=== PATIENT | male | born 1960 ===

== ENCOUNTER 2019-08-03 11:09 | Inpatient (IN) ==
[2019-08-03] MEDS ORDERED: ACETAMINOPHEN 325 MG TAB PO PRN (12:43)
[2019-08-03 13:42] LABS: Basophils # (auto) 0.03 K/uL (0-0.2); Basophils % (auto) 0.5 %; Eosinophils # (auto) 0.09 K/uL (0-0.5); Eosinophils % (auto) 1.4 %; Hemoglobin 12.6 g/dL (14.0-18.0); Immature Granulocytes # (auto) 0.01 K/uL (0.00-0.02); Immature Granulocytes % (auto) 0.2 %; Lymphocytes # (auto) 0.87 K/uL (1.2-3.4); Lymphocytes % (auto) 13.1 %; Mean Corpuscular Hemoglobin 29.9 pg (25-34); Mean Corpuscular Volume 85.5 fL (80-100); Mean Platelet Volume 10.9 fL (7.4-10.4); Monocytes % (auto) 9.1 %; Neutrophils # (auto) 5.02 K/uL (1.4-6.5); Neutrophils % (auto) 75.7 %; Platelet Count 144 K/uL (130-400); RDW Coefficient of Variation 12.8 % (11.5-14.5); Red Blood Count 4.21 M/uL (4.7-6.1); White Blood Count 6.62 K/uL (4.8-10.8)
[2019-08-03 14:04] LABS: BUN Creatinine Ratio 17.3 (10-20); Calcium 8.2 mg/dl (8.5-10.1); Creatinine Clr Calc Pharmacy 90.4 ml/min; Est GFR (African American) 97.6; Est GFR (Non-African American) 84.2; Magnesium 2.1 mg/dl (1.8-2.4); Potassium 3.3 mmol/L (3.5-5.1)
[2019-08-03 14:14] LABS: Phosphorus 1.8 mg/dl (2.5-4.9); Thyroid Stimulating Hormone 4.06 uIu/ml (0.300-4.500)
[2019-08-03 14:21] LABS: Lyme Ab IgG w/WB Rflx Negative (Negative); Lyme Ab IgM w/WB Rflx Negative (Negative)
[2019-08-03] MEDS: ENOXAPARIN INJ 40 MG/0.4 ML SYR SQ SCH (16:03)
--- NOTE | 2019-08-03 16:12 | Cardiology Consultation ---
Date of Consultation August 03, 2019 Assessment & Plan (1) PAF (paroxysmal atrial fibrillation): The patient likely had a paroxysm of atrial fibrillation lasting 8-10 hours. Fortunately, he has converted back to sinus rhythm. Interestingly, the patient received an injection of what was most likely a steroid, the morning before his atrial fibrillation developed. In any event, the patient's CHADS score is 0, and therefore, he does not require long-term anticoagulation at this time. (2) Elevated troponin: The minor elevation in troponin likely related to the rapid ventricular response to his atrial fibrillation. Would simply trend his cardiac markers at this time. History of Present Illness Attending Physician: Aldo Ortega History of Present Illness Mr. Fabian is a 58-year-old male transferred from [facility] to our institution because of atrial fibrillation and a rapid ventricular response. This consultation was order to assist in his cardiac management. The patient was in his usual state of health until Friday when he awoke from sleep with fever, chills, in a diffuse rash. The patient presented to his primary care provider on Friday and received doxycycline and apparently had some type of an injection (? hydrocortisone). On Friday evening, just prior to going to bed, the patient noticed his heart to race causing him palpitations and anxiety. The patient was eventually able to fall sleep, however, when he awoke Friday, his palpitations persisted. He presented to the [facility] for further care. Initial EKG revealed atrial fibrillation with a rapid ventricular response. The patient was given a dose of intravenous adenosine, but then started on an intravenous Cardizem drip. He was then transferred to our institution for further care. The patient was interviewed and examined in the Echo Department this afternoon. At the time of my evaluation, the patient was in sinus rhythm. The patient has never known of an episode of atrial fibrillation previously. He has never experienced a cardiac event. He denies exertional chest pain, dyspnea, syncope, presyncope, PND, orthopnea, lower extremity edema, and claudication. The patient does not recall a tick bite, however, spends a great deal time in the [employer] hunting. Currently, patient is resting comfortably in bed complaining only of myalgias. Past medical and surgical history 1. GERD 2. Goss's esophagus 3. Hiatal hernia repair an esophageal resection-2017 4. History of pancreatitis 5. 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 Allergies Allergy/AdvReac Type Severity Reaction Status Date / Time Penicillins Allergy Rash Verified 08/03/19 12:39 sulfamethoxazole Allergy Rash Verified 08/03/19 12:39 [From Bactrim] trimethoprim [From Bactrim] Allergy Rash Verified 08/03/19 12:39 aspirin AdvReac Unknown Verified 08/03/19 12:39 Home Medications Home Medications Medication Instructions Recorded Confirmed Type loratadine [Claritin] 10 mg PO DAILY 08/03/19 08/03/19 History multivitamin 1 tab PO DAILY 08/03/19 08/03/19 History Patient History Medical History GERD (gastroesophageal reflux disease) Pancreatitis Surgical History History of repair of hiatal hernia Social History Preferred Language: Romansh Communication Ability: Effective Land Law Examiner Required: No Beliefs That Will Affect Care: None Current Living Situation: Spouse Other Information That Helps Us Care for You: No Feels Safe at Home: Yes Safety Concerns: Feels Safe At This Time Smoking Status: Former smoker Tobacco Type: smokeless tobacco ; Do You Dip or Chew Tobacco: Yes ; Hx Alcohol Use: No Hx Substance Use: No Results & Data Vital Signs (Past 12 Hours) Vital Signs Temp Pulse Pulse Resp BP Pulse Ox 08/03/19 15:32 36.9 C 92 H 18 101/72 95 08/03/19 12:41 83 08/03/19 12:22 36.8 C 92 H 16 103/68 98 Laboratory Results CBC notes a hemoglobin of 12.6, hematocrit 36.0, white count 6.6, and platelet count of [id number]. Electrolytes episode of 135, potassium 3.3, chloride 103, bicarb 25, BUN 70, creatinine 0.99, and glucose of 121. Magnesium normal at 2.1 with a low phosphorus at 1.8. TSH level is normal at 4.06. Troponin I level is elevated at 0.097. Diagnostic Findings EKG performed this morning at [facility] revealed atrial fibrillation with a rapid ventricular response. 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 PG Care Time/CCT Total # of Minutes Spent Total Time Spent with Patient: Total time spent is greater than 50% in coordination of care (as documented) at patient's floor/unit and/or counseling patient:
[2019-08-03] MEDS: DOXYCYCLINE HYCLATE 100 MG CAP PO SCH (20:08)
[2019-08-03] MEDS ORDERED: SODIUM PHOSPHATE 3 MMOL/1 ML INFUSION IV STA (21:54)
[2019-08-03] MEDS ORDERED: POTASSIUM CHLORIDE 20 MEQ TABCR PO STA (21:54)
[2019-08-03] MEDS ORDERED: SODIUM PHOSPHATE 21 MMOL in SODIUM CHLORIDE 0.9% 500 ML IV ONE (22:30)
--- NOTE | 2019-08-03 23:51 | History & Physical Report ---
Date of Service August 03, 2019 Assessment & Plan (1) Atrial fibrillation: With brief episode of atrial fibrillation with RVR. Resolved after Cardizem. Presently asymptomatic, hemodynamically stable, in normal sinus rhythm. Per UEBFV-9-Uozo score patient is low risk for stroke and therefore does not require systemic anticoagulation. As he is back in normal sinus rhythm we will not initiate any antiarrhythmics. -Trend cardiac markers. Initial troponin = 0.097, repeat 0.068. -Cardiology assistance appreciated Present on Admission?: Yes (2) Dyslipidemia: Patient with documented history of this. Presently not on any medication -Recommend outpatient follow-up Present on Admission?: Yes (3) Hypertension: Patient with documented history of this. Not presently on any medications. Low blood pressure -Continue to monitor Present on Admission?: Yes (4) Rash: Suspect that his rash is secondary to Bactrim use. Less likely from the doxycycline. He reports that it is improved -Benadryl as needed FENHep-Lock. Monitor electrolytes and replete as needed. Heart healthy diet as tolerated. ProphylaxisLovenox Codefull DispoPCU Present on Admission?: Yes History of Present Illness Chief Complaint: Palpitations Primary Care Provider: NO PCP Mr. Fabian is a pleasant 58-year-old male with history of hypertension, hyperlipidemia, GERD presenting from an outside hospital with new onset atrial fibrillation. Patient reports that his symptoms began last night around 2200 and consisted of palpitations, racing heart as well as some chest pressure and shortness of breath. His symptoms persisted through the night w hich prompted him to seek medical care. He was seen at [facility] where he was found to be in narrow complex tachycardia with a rate of 221, blood pressure as low as 89/61. He was administered adenosine 6 mg and multiple doses of Cardizem (per record review 20 mg IV x2 doses and 10 mg IV x2 doses). EKG suggestive of atrial fibrillation with RVR. He was started on a heparin drip an d subsequently transferred to [facility]. Patient presently with no complaints. He denies palpitations, chest pain, shortness of breath, dizziness. He reports that he feels much better than before. He has no known history of CAD, heart failure, arrhythmia. He is active and independent, enjoys hiking and hunting. No known tick exposures. He was tested for Lyme at the outside facility and was started on empiric doxycycline. Patient also with a recent tooth abscess for which she was treated with Bactrim x10-day course. He took his last dose on Friday. He reports that after taking the first few doses of Bactrim he developed a diffuse rash as well as some dizziness, chills. Course at outside facility: Cardizem 20 mg IV x2, 10 mg IV x2, adenosine 6 mg IV x1, aspirin 364 mg p.o., nitro sublingual, heparin drip Allergies Allergy/AdvReac Type Severity Reaction Status Date / Time Penicillins Allergy Rash Verified 08/03/19 12:39 sulfamethoxazole Allergy Rash Verified 08/03/19 12:39 [From Bactrim] trimethoprim [From Bactrim] Allergy Rash Verified 08/03/19 12:39 aspirin AdvReac Unknown Verified 08/03/19 12:39 Home Medications Home Medications Medication Instructions Recorded Confirmed Type loratadine [Claritin] 10 mg PO DAILY 08/03/19 08/03/19 History multivitamin 1 tab PO DAILY 08/03/19 08/03/19 History Past Med/Surg History Medical History Dyslipidemia GERD (gastroesophageal reflux disease) Hypertension Surgical History History of hernia repair History of repair of hiatal hernia History of shoulder surgery Family History Other Cancer Social History Preferred Language: Yemeni Communication Ability: Effective Logistics System Engineer Required: No Beliefs That Will Affect Care: None Current Living Situation: Spouse Other Information That Helps Us Care for You: No Feels Safe at Home: Yes Safety Concerns: Feels Safe At This Time Smoking Status: Former smoker Tobacco Type: smokeless tobacco ; Do You Dip or Chew Tobacco: Yes ; Hx Alcohol Use: No Hx Substance Use: No Review of Systems Review of Systems: All systems reviewed & are unremarkable except as noted in HPI & below Physical Exam Physical Exam: General: patient resting comfortably, NAD, non-toxic in appearance, AA&O x 4 Skin: warm, dry, intact, diffuse lacy appearing macular rash on arms, legs, back and trunk, blanchable HEENT: NC/AT, PERRL, EOMI, anicteric sclera, conjunctiva without injection, external ear normal to inspection and nontender, nares patent, moist mucus membranes, dentition intact, no oropharyngeal lesions, neck supple, trachea midline, no LAD, no thyromegaly, no JVD Heart: +S1/S2, regular, no m/r/g Lungs: equal air entry bilaterally, no rales/rhonchi/wheezes Abd: +BS, soft, NT/ND, no masses/organomegaly/ascites Ext: warm, 2+ pulses in UE/LE bilaterally, no clubbing/cyanosis or edema Neuro: nonfocal, patient AA&O x 4, speech intact, no facial droop, moving all extremities on command with equal strength 5/5 Results & Data Vital Signs (Past 12 Hours) Vital Signs Temp Pulse Pulse Resp BP Pulse Ox 08/03/19 21:47 100/59 L 08/03/19 20:06 93/63 L 08/03/19 19:50 36.7 C 90 18 88/63 L 95 08/03/19 15:32 36.9 C 92 H 18 101/72 95 08/03/19 12:41 83 08/03/19 12:22 36.8 C 92 H 16 103/68 98 Laboratory Results Lab Results 08/03/19 08/03/19 08/03/19 Range/Units 13:20 13:20 13:20 WBC 6.62 (4.8-10.8) K/uL RBC 4.21 L (4.7-6.1) M/uL Hgb 12.6 L (14.0-18.0) g/dL Hct 36.0 L (42-52) % MCV 85.5 (80-100) fL MCH 29.9 (25-34) pg MCHC 35.0 (32-36) g/dL RDW Std Deviation 40.0 (36.4-46.3) fL RDW Coeff of Brandt 12.8 (11.5-14.5) % Plt Count 144 (130-400) K/uL MPV 10.9 H (7.4-10.4) fL Immature Gran % (Auto) 0.2 % Neut % (Auto) 75.7 % Lymph % (Auto) 13.1 % [place] % (Auto) 9.1 % Eos % (Auto) 1.4 % Baso % (Auto) 0.5 % Immature Gran # (Auto) 0.01 (0.00-0.02) K/uL Neut # (Auto) 5.02 (1.4-6.5) K/uL Lymph # (Auto) 0.87 L (1.2-3.4) K/uL [place] # (Auto) 0.60 H (0.11-0.59) K/uL Eos # (Auto) 0.09 (0-0.5) K/uL Baso # (Auto) 0.03 (0-0.2) K/uL Sodium 135 L (136-145) mmol/L Potassium 3.3 L (3.5-5.1) mmol/L Chloride 103 (98-107) mmol/L Carbon Dioxide 25 (21-32) mmol/L Anion Gap 7.0 (3-11) BUN 17 (7-18) mg/dl Creatinine 0.99 (0.6-1.4) mg/dl Est Cr Clr Drug Dosing 90.4 ml/min Est GFR ( Amer) 97.6 Est GFR (Non-Af Amer) 84.2 BUN/Creatinine Ratio 17.3 (10-20) Glucose 121 H (70-99) mg/dl Calcium 8.2 L (8.5-10.1) mg/dl Phosphorus 1.8 L (2.5-4.9) mg/dl Magnesium 2.1 (1.8-2.4) mg/dl Troponin I 0.097 H* (0-0.045) ng/ml TSH 4.060 (0.300-4.500) uIu/ml Lyme Disease IgG Ab (Negative) Lyme Disease IgM Ab (Negative) 08/03/19 08/03/19 Range/Units 13:20 22:06 WBC (4.8-10.8) K/uL RBC (4.7-6.1) M/uL Hgb (14.0-18.0) g/dL Hct (42-52) % MCV (80-100) fL MCH (25-34) pg MCHC (32-36) g/dL RDW Std Deviation (36.4-46.3) fL RDW Coeff of Brandt (11.5-14.5) % Plt Count (130-400) K/uL MPV (7.4-10.4) fL Immature Gran % (Auto) % Neut % (Auto) % Lymph % (Auto) % [place] % (Auto) % Eos % (Auto) % Baso % (Auto) % Immature Gran # (Auto) (0.00-0.02) K/uL Neut # (Auto) (1.4-6.5) K/uL Lymph # (Auto) (1.2-3.4) K/uL [place] # (Auto) (0.11-0.59) K/uL Eos # (Auto) (0-0.5) K/uL Baso # (Auto) (0-0.2) K/uL Sodium (136-145) mmol/L Potassium (3.5-5.1) mmol/L Chloride (98-107) mmol/L Carbon Dioxide (21-32) mmol/L Anion Gap (3-11) BUN (7-18) mg/dl Creatinine (0.6-1.4) mg/dl Est Cr Clr Drug Dosing ml/min Est GFR ( Amer) Est GFR (Non-Af Amer) BUN/Creatinine Ratio (10-20) Glucose (70-99) mg/dl Calcium (8.5-10.1) mg/dl Phosphorus (2.5-4.9) mg/dl Magnesium (1.8-2.4) mg/dl Troponin I 0.068 H* (0-0.045) ng/ml TSH (0.300-4.500) uIu/ml Lyme Disease IgG Ab Negative (Negative) Lyme Disease IgM Ab Negative (Negative) Code Status & VTE Plan Code Status Full code VTE Prophylaxis Plan VTE Prophylaxis will be ordered: Yes PG Care Time/CCT Total # of Minutes Spent Total Time Spent with Patient: Total time spent is greater than 50% in coordination of care (as documented) at patient's floor/unit and/or counseling patient: (1) Hypertension Hypertension type: essential hypertension Qualified Code(s): I10 - Essential (primary) hypertension (2) Atrial fibrillation Atrial fibrillation type: unspecified Qualified Code(s): I48.91 - Unspecified atrial fibrillation
[2019-08-04] MEDS ORDERED: METOPROLOL TARTRATE 1 MG/ML VIAL IV STA (00:59)
[2019-08-04] MEDS ORDERED: SODIUM CHLORIDE 0.9% 1000ML 1,000 ML IV ONE (00:59)
[2019-08-04] MEDS ORDERED: KETOROLAC TROMETHAMINE 15 MG/ML VIAL IV ONE (01:00)
[2019-08-04] MEDS ORDERED: LACTATED RINGER'S 1,000 ML IV SCH (03:45)
[2019-08-04] MEDS ORDERED: SODIUM CHLORIDE 0.9% 500 ML IV SCH (04:00)
[2019-08-04 04:20] LABS: Basophils # (auto) 0.02 K/uL (0-0.2); Basophils % (auto) 0.4 %; Eosinophils # (auto) 0.07 K/uL (0-0.5); Eosinophils % (auto) 1.3 %; Hematocrit (blood only) 31.2 % (42-52); Hemoglobin 10.7 g/dL (14.0-18.0); Immature Granulocytes # (auto) 0.01 K/uL (0.00-0.02); Immature Granulocytes % (auto) 0.2 %; Lymphocytes # (auto) 0.55 K/uL (1.2-3.4); Lymphocytes % (auto) 10.4 %; Mean Corpuscular Hemoglobin 29.5 pg (25-34); Mean Corpuscular Hgb Conc 34.3 g/dL (32-36); Mean Platelet Volume 10.3 fL (7.4-10.4); Monocytes # (auto) 0.58 K/uL (0.11-0.59); Neutrophils # (auto) 4.05 K/uL (1.4-6.5); Neutrophils % (auto) 76.7 %; Platelet Count 132 K/uL (130-400); RDW Coefficient of Variation 12.8 % (11.5-14.5); Red Blood Count 3.63 M/uL (4.7-6.1); White Blood Count 5.28 K/uL (4.8-10.8)
[2019-08-04 04:34] LABS: BUN Creatinine Ratio 18.5 (10-20); Calcium 7.5 mg/dl (8.5-10.1); Creatinine Clr Calc Pharmacy 98.3 ml/min; Est GFR (Non-African American) 93.2; Phosphorus 2.8 mg/dl (2.5-4.9)
[2019-08-04 04:37] LABS: Troponin I 0.066 ng/ml (0-0.045)
--- NOTE | 2019-08-04 06:08 | XRay Report ---
XR chest 1V portable CLINICAL HISTORY: sob dyspnea COMPARISON STUDY: No previous studies for comparison. FINDINGS: Mild cardiomegaly. Prominent pulmonary vasculature. Diaphragms are smooth. IMPRESSION: Congestive heart failure The above report was generated using voice recognition software. It may contain grammatical, syntax or spelling errors. Electronically signed by: Gustavo Oconnor M.D. 08/04/2019 6:06 AM
[2019-08-04] MEDS: DOXYCYCLINE HYCLATE 100 MG CAP PO SCH ×2 (08:50→20:14)
--- NOTE | 2019-08-04 11:14 | Cardiology Progress Note ---
Date of Service August 04, 2019 Assessment & Plan (1) PAF (paroxysmal atrial fibrillation): The patient had a paroxysm of atrial fibrillation lasting approximately 8- 10 hours that spontaneously converted back to sinus rhythm. He did receive receive an injection of a steroid the morning before his atrial fibrillation developed. With a CHADS score of 0, the patient does not require long-term anticoagulation. (2) Elevated troponin: The minor elevation in troponin likely related to his rapid atrial fibrillation. Troponin now trending down. Stable for hospital discharge. Subjective The patient is resting comfortably in bed without complaints of chest pain or dyspnea. Myalgias and arthralgias have improved dramatically. Physical Exam Physical Exam: In general this is a well-developed well-nourished white male in no acute distress. HEENT exam is negative. Neck is supple with full carotid upstrokes. There are no carotid bruits. Jugular venous pressure is flat at 90. There is no thyromegaly. Cardiovascular exam reveals a regular rhythm with a normal S1 and S2. No S3, S4, or murmurs are noted. Lungs are clear without rales, rhonchi, or wheezes. Abdomen is soft and nontender without bruits. Extremities reveal intact radial artery and posterior tibial pulses bilaterally. There is no peripheral edema. Results & Data Vital Signs (Past 12 Hours) Vital Signs Temp Pulse Pulse Pulse Resp BP BP 08/04/19 07:59 36.8 C 88 16 08/04/19 07:51 99 H 08/04/19 04:58 85/61 L 08/04/19 03:31 81/45 L 08/04/19 03:26 37.3 C 88 18 08/04/19 02:04 91 H 08/04/19 01:24 103 H 106/62 08/04/19 00:40 100 H 18 89/53 L 08/03/19 23:39 37.7 C H 117 H 18 95/56 L BP Pulse Ox 08/04/19 07:59 100/71 94 08/04/19 07:51 08/04/19 04:58 90/62 L 08/04/19 03:31 79/56 L 08/04/19 03:26 95 08/04/19 02:04 08/04/19 01:24 08/04/19 00:40 94 08/03/19 23:39 93 Laboratory Results Troponin I level now down to 0.06 from a peak value of 0.097. PG Care Time/CCT Total # of Minutes Spent Total Time Spent with Patient: Total time spent is greater than 50% in coordination of care (as documented) at patient's floor/unit and/or counseling patient:
[2019-08-04] MEDS: ENOXAPARIN INJ 40 MG/0.4 ML SYR SQ SCH (17:11)
--- NOTE | 2019-08-04 21:53 | Hospitalist Progress Note ---
Date of Service August 04, 2019 Assessment & Plan (1) Atrial fibrillation: With brief episode of atrial fibrillation with RVR. Resolved after Cardizem. Presently asymptomatic, hemodynamically stable, in normal sinus rhythm. Per FGRPB-2-Xqdn score patient is low risk for stroke and therefore does not require systemic anticoagulation. As he is back in normal sinus rhythm we will not initiate any antiarrhythmics. He had a steroid injection which likely led to this episode. will monitor. will not need mcc anticoagulation. (2) Dyslipidemia: Patient with documented history of this. Presently not on any medication -Recommend outpatient follow-up (3) Hypertension: Patient with documented history of this. Not presently on any medications. Low blood pressure -Continue to monitor (4) Rash: Suspect that his rash is secondary to Bactrim use. Less likely from the doxycycline. He reports that it is improved -Benadryl as needed FENHep-Lock. Monitor electrolytes and replete as needed. Heart healthy diet as tolerated. ProphylaxisLovenox Codefull DispoPCU (5) Demand ischemia: trop peaked at 0.06 likely due to a. fib episode. discussed with cardio. will monitor. Subjective 58 yo male reports feeling better. Patient denies any new complaints. Review of Systems Review of Systems: All systems reviewed & are unremarkable except as noted in HPI & below Physical Exam Physical Exam: General: patient resting comfortably, NAD, non-toxic in appearance, AA&O x 4 Skin: warm, dry, intact, diffuse lacy appearing macular rash on arms, legs, back and trunk, blanchable HEENT: NC/AT, PERRL, EOMI, anicteric sclera, conjunctiva without injection, external ear normal to inspection and nontender, nares patent, moist mucus membranes, dentition intact, no oropharyngeal lesions, neck supple, trachea midline, no LAD, no thyromegaly, no JVD Heart: +S1/S2, regular, no m/r/g Lungs: equal air entry bilaterally, no rales/rhonchi/wheezes Abd: +BS, soft, NT/ND, no masses/organomegaly/ascites Ext: warm, 2+ pulses in UE/LE bilaterally, no clubbing/cyanosis or edema Neuro: nonfocal, patient AA&O x 4, speech intact, no facial droop, moving all extremities on command with equal strength 5/5 Results & Data Vital Signs (Past 12 Hours) Vital Signs Temp Pulse Pulse Resp BP BP Pulse Ox 08/04/19 19:33 37.2 C 95 H 18 95/63 L 91 08/04/19 16:00 107 H 08/04/19 15:52 37.2 C 107 H 18 100/69 94 08/04/19 11:36 36.6 C 107 H 18 104/76 97 PG Care Time/CCT Total # of Minutes Spent Total Time Spent with Patient: Total time spent is greater than 50% in coordination of care (as documented) at patient's floor/unit and/or counseling patient: (1) Atrial fibrillation Atrial fibrillation type: unspecified Qualified Code(s): I48.91 - Unspecified atrial fibrillation (2) Hypertension Hypertension type: essential hypertension Qualified Code(s): I10 - Essential (primary) hypertension
[2019-08-05] MEDS ORDERED: METOPROLOL TARTRATE 25 MG TAB PO ONE (09:15)
[2019-08-05] MEDS: DOXYCYCLINE HYCLATE 100 MG CAP PO SCH ×2 (09:17→20:25)
[2019-08-05] MEDS ORDERED: METOPROLOL TARTRATE 1 MG/ML VIAL IV STA (09:36)
[2019-08-05] MEDS ORDERED: FLECAINIDE ACETATE 100 MG TABLET PO ONE (10:15)
--- NOTE | 2019-08-05 11:27 | Cardiology Progress Note ---
Date of Service August 05, 2019 Assessment & Plan (1) PAF (paroxysmal atrial fibrillation): The patient developed another paroxysm of atrial fibrillation this morning. His ventricular response is rapid. We are unable to up titrate metoprolol due to his relative hypotension. Will initiate flecainide 100 mg b.i.d. hoping to obtain and maintain sinus rhythm. Will not use long-term anticoagulation as his CHADS score is 0. (2) Elevated troponin: The minor elevation in troponin likely related to his rapid atrial fibrillation and resultant demand ischemia. Subjective The patient is resting in bedside chair without complaints of chest pain, dyspnea, or palpitations. We have discussed initiating flecainide as we cannot use metoprolol due to his relative hypotension. Physical Exam Physical Exam: In general this is a well-developed well-nourished white male in no acute distress. HEENT exam is negative. Neck is supple with full carotid upstrokes. There are no carotid bruits. Jugular venous pressure is flat at 90. There is no thyromegaly. Cardiovascular exam reveals an irregular heart r hythm with distant heart sounds. No obvious murmurs. Lungs are clear without rales, rhonchi, or wheezes. Abdomen is soft and nontender without bruits. Extremities reveal intact radial artery and posterior tibial pulses bilaterally. There is no peripheral edema. 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 PG Care Time/CCT Total # of Minutes Spent Total Time Spent with Patient: Total time spent is greater than 50% in coordination of care (as documented) at patient's floor/unit and/or counseling patient:
[2019-08-05] MEDS: ENOXAPARIN INJ 40 MG/0.4 ML SYR SQ SCH (15:44)
[2019-08-05] MEDS: FLECAINIDE ACETATE 100 MG TABLET PO SCH (20:25)
--- NOTE | 2019-08-05 22:02 | Hospitalist Progress Note ---
Date of Service August 05, 2019 Assessment & Plan (1) Atrial fibrillation: With brief episode of atrial fibrillation with RVR. Resolved after Cardizem. Presently asymptomatic, hemodynamically stable, in normal sinus rhythm. Per DIGJH-3-Ntnx score patient is low risk for stroke and therefore does not require systemic anticoagulation. Patient has been going in and out of a fib. Will place patient on flecanide. will monitor patient as he is not from here to make sure his heart rate is better. (2) Dyslipidemia: Patient with documented history of this. Presently not on any medication -Recommend outpatient follow-up (3) Hypertension: Patient with documented history of this. Not presently on any medications. Low blood pressure: given beta kenny, will hold further beta blockers. -Continue to monitor (4) Rash: Suspect that his rash is secondary to Bactrim use. Less likely from the doxycycline. He reports that it is improved -Benadryl as needed FENHep-Lock. Monitor electrolytes and replete as needed. Heart healthy diet as tolerated. ProphylaxisLovenox Codefull DispoPCU (5) Demand ischemia: trop peaked at 0.06 likely due to a. fib episode. discussed with cardio. will monitor. Had multiple visits with patient today on 08/05 Subjective Patient reports feeling well. He did have a burst of AFIB RVR while I was in the room. Review of Systems Review of Systems: All systems reviewed & are unremarkable except as noted in HPI & below Physical Exam Physical Exam: General: patient resting comfortably, NAD, non-toxic in appearance, AA&O x 4 Skin: warm, dry, intact, diffuse lacy appearing macular rash on arms, legs, back and trunk, blanchable HEENT: NC/AT, PERRL, EOMI, anicteric sclera, conjunctiva without injection, external ear normal to inspection and nontender, nares patent, moist mucus membranes, dentition intact, no oropharyngeal lesions, neck supple, trachea midline, no LAD, no thyromegaly, no JVD Heart: +S1/S2, regular, no m/r/g Lungs: equal air entry bilaterally, no rales/rhonchi/wheezes Abd: +BS, soft, NT/ND, no masses/organomegaly/ascites Ext: warm, 2+ pulses in UE/LE bilaterally, no clubbing/cyanosis or edema Neuro: nonfocal, patient AA&O x 4, speech intact, no facial droop, moving all extremities on command with equal strength 5/5 Results & Data Vital Signs (Past 12 Hours) Vital Signs Temp Pulse Pulse Resp BP BP Pulse Ox 08/05/19 19:54 36.8 C 82 18 99/66 L 93 08/05/19 15:47 36.8 C 90 18 95/67 L 97 08/05/19 15:06 89 08/05/19 11:53 37.1 C 106 H 20 84/75 L 99 PG Care Time/CCT Total # of Minutes Spent Total Time Spent with Patient: Total time spent is greater than 50% in coordination of care (as documented) at patient's floor/unit and/or counseling patient: (1) Atrial fibrillation Atrial fibrillation type: unspecified Qualified Code(s): I48.91 - Unspecified atrial fibrillation (2) Hypertension Hypertension type: essential hypertension Qualified Code(s): I10 - Essential (primary) hypertension
[2019-08-06] MEDS: FLECAINIDE ACETATE 100 MG TABLET PO SCH (08:25)
[2019-08-06] MEDS: DOXYCYCLINE HYCLATE 100 MG CAP PO SCH (08:25)
== END 2019-08-06 13:20 | disposition home or self-care (01) | DRG 309 ==
LOC: 2E 12:26 → SUATTDRO 12:26 → EDBD 12:26